=== PATIENT | female | born 1995 | race Caucasian/White ===

== ENCOUNTER 2018-10-11 15:21 | Emergency (ER) | payer OTHER ==
[~2018-10-11] VITALS: Ht 154.9 cm; Wt 73.0 kg
[2018-10-11 15:28] VITALS: Ht 154.9 cm; Wt 73.0 kg
[2018-10-11 17:21] VITALS: BP 115/70
== END 2018-10-11 17:21 | disposition home or self-care (01) ==
LOC: ED 15:21
DX: J40 Bronchitis, not specified as acute or chronic (principal)
CPT/HCPCS: Q0092

== ENCOUNTER 2019-05-19 07:02 | Emergency (ER) | payer OTHER ==
[~2019-05-19] VITALS: Ht 157.5 cm; Wt 71.7 kg
[2019-05-19 07:09] VITALS: Ht 157.5 cm; Wt 71.7 kg
[2019-05-19 09:20] VITALS: BP 120/63
== END 2019-05-19 09:20 | disposition home or self-care (01) ==
LOC: ED 07:02
DX: M25.561 Pain in right knee (principal)